=== PATIENT | female | born 1950 | race Caucasian/White ===

== ENCOUNTER 2024-03-19 08:38 | Day surgery (SDC) | payer MEDICARE, SELFPAY ==
[2024-03-12 11:13] VITALS: BMI 35.1
[2024-03-19] VITALS (10 sets, daily range): BP systolic 135–187; BP diastolic 67–89; PULSE 59–71; RESP 12–20; TEMP 36.6–37.1; O2SAT 93–98; BMI 34.7
--- NOTE | 2024-03-19 06:00 | DI.RAD.S_ITS ---
PROCEDURE: XR KNEE LT 1TO2V INDICATIONS: TKA TECHNIQUE: 2 view(s) of the knee acquired. COMPARISON: [facility], CR, XR KNEE 4+ VIEWS LEFT, 03/06/2024, 13:04. FINDINGS: Bones: Patient is status post knee joint arthroplasty. Hardware components are in expected positions. Visualized bony structures are intact. Soft tissues: Overlying postoperative changes are noted. IMPRESSION: Expected post-operative appearance of a knee arthroplasty. Dictated by: Nick Hargrove M.D. on 03/19/2024 at 17:56 Approved by: Nick Hargrove M.D. on 03/19/2024 at 17:56
[2024-03-19] MEDS: CELECOXIB 200 MG CAPSULE 400 MG PO (09:34)
[2024-03-19] MEDS: LACTATED RINGERS 1,000 ML 42 ML IV (09:34)
[2024-03-19] MEDS: ACETAMINOPHEN 325 MG TABLET 975 MG PO (09:36)
[2024-03-19] MEDS: VANCOMYCIN 1,500 MG/300 ML PIGGYBACK 200 MG IV (10:12)
--- NOTE | 2024-03-19 10:50 | PM.PREOP ---
Pre-operative Note Interval Note History & Physical reviewed/Exam performed by Physician: Yes Changes to H&P: No
--- NOTE | 2024-03-19 10:50 | PM.OP.1 ---
Operative Date/Time/Diagnoses Date of procedure: 03/19/24 Time of procedure: 11:30 Pre-op diagnosis: Left knee OA Post-op diagnosis: same Procedure & Clinicians Procedure: Left total knee arthroplasty Same procedure as scheduled: Yes Indications: The patient has had progressively worsening left knee pain with radiographic changes consistent with arthritis. Non-operative management has failed and the patient has requested total knee replacement. The risks, benefits and alternatives to surgery were discussed with the patient prior to proceeding. Risks discussed included, but were not limited to, failure to relieve pain, stiffness, infection, nerve damage, deep venous thrombosis, pulmonary embolism, stroke, coma, heart attack, permanent paralysis and , as well as the potential need for eventual revision of the prosthetic. Surgeon: Mary Jane Mora Family Worker: Jonathan Rose Anesthesia Type: General and Spinal Operative Notes Findings: Severe left knee OA, adequate stability, adequate bone Closure Type: primary Specimen(s): none sent Prosthetic devices, grafts, tissues, transplants, or devices: [facility] BCS 2 size 5 femur, size 4 tibia, +10 poly, 35 x 7-1/2 mm patella Estimated Blood Loss (mL): 250 Blood products transfused: none Tourniquet time (min): 123 Procedure in detail: The patient was seen in the pre-operative area, where the patient identified the left knee as the operative site and this was marked with my initials. The patient received pre-operative antibiotics, and was taken to the operating room and placed on the operative table in the supine position. After satisfactory anesthesia, a multimedia engineer out was performed. The left leg was encircled with a tourniquet about the proximal thigh, and the leg was prepared from the toes to the tourniquet with ChloroPrep in the usual fashion and draped through sterile drapes. The leg was elevated and exsanguinated with Eschmark bandage and the tourniquet inflated to [250] mmHg pressure. A PA was used during the procedure was essential for intraoperative retraction and safe implantation of the components. The knee was approached through an approximately 18 cm incision centered over the patella and carried into the knee through a medial parapatellar arthrotomy. She had a very tight knee with leathery synovium. Portion of the medial and lateral meniscus was resected. Soft tissue was carefully mobilized around the patella the patella was measured with a caliper. Bone was resected from the patella and the patellar height was reconstituted with up an appropriate sized patellar component. She had a severely worn patella which was slightly aberrant. A cover was then placed on the patella. A small amount of additional medial and lateral meniscus was resected. Sajan pins were placed for robot assisted navigation. Two pins were placed in the femur and the tibial guide was pinned to the tibia. A plan was taken and meticulously navigated in order to optimize range of motion and stability with good balance throughout range of motion. Cori robotic bur was used for the distal femoral resection. It looked like an appropriate distal femoral cut and the cut was made without difficulty. The rotation was assessed and the appropriate size femoral guide was placed on the distal femur and finishing cuts were made. There was no evidence of notching. The anterior, posterior and chamfer cuts were then made. The posterior osteophytes and soft tissues were then removed. The posterior capsule was injected with part of a mixture of 60 ml 0.25% Marcaine mixed with 20 ml Exparel for post operative pain control. The remainder of this mixture was injected into the capsule and subcutaneous tissues during cement curing. The tibial guide was carefully navigated. It was then pinned to the tibia and the proximal tibial cut was made. The rotation was assessed. The patient was placed in extension residual medial and lateral meniscus as well as any residual bone was carefully resected. [No] additional tibia was resected. Hemostasis was achieved especially posteriorly. Additional local was injected into the posterior capsule. The extension gap was assessed. The femoral component trial was placed and the notch was finished. Trial tibial and femoral components were then placed and the knee placed through a range of motion. Range of motion was [0-130], with good stability throughout the range. The trials were then removed, and the tibia was finished. The bone was prepared with pulsatile lavage, and dried with a sponge. Cement was applied and the final prosthetics placed. Excess cement was removed during and after cement curing. A brief Betadine soak was performed. After confirming there was no extruded cement posteriorly, the final tibial insert was placed. The knee was copiously irrigated and the tourniquet deflated. Hemostasis was obtained with the Bovie cautery. . The capsule was closed with interrupted # 1 Vicryl suture. The subcutaneous layer was closed with barbed sutures, and the skin with a running 3-0 V-Lock suture and Surgical glue. A guanakito dressing was applied and the patient was taken to recovery having tolerated the procedure well. Complications: none Post-operative Condition: stable Disposition: Acute Care Plan for aftercare: The patient will be maintained on a standard total knee replacement protocol with weight bearing as tolerated. The patient will receive aspirin and sequential compression devices for DVT prophylaxis. The patient will be discharged home when safe for the home environment.
--- NOTE | 2024-03-19 11:48 | SUR.PREOP ---
Block start time [1132] . Monitoring initiated and maintained throughout procedure. Oxygen and medications given per anesthesiologist instructions. Patient remained stable throughout procedure, no adverse reactions noted. Block end time [1140].
[2024-03-19] MEDS: CEFAZOLIN 2 GM/100 ML PREMIX 100 ML IV ×2 (12:36→18:14)
[2024-03-19] MEDS: TRANEXAMIC ACID 1,000 MG VIAL 1000 MG INJ ×2 (12:37→14:51)
--- NOTE | 2024-03-19 12:57 | SUR.OPER ---
Supine on padded OR bed. Pillow under head, arms secured on padded armboards <90 degree abduction. Safety belt across torso. Non-operative leg secured with tape over blanket over lower leg. Operative leg secured in DeMayo/Channing/Nathe positioner. Foam padded brace at thigh of operative leg.
[2024-03-19] MEDS: BUPIVACAINE 0.25% (PF) 60 ML, EPINEPHrine 0.3 MG INJ (13:04)
[2024-03-19] MEDS: BUPIVACAINE LIPOSOME 266 MG/20 ML VIAL INJ (13:05)
[2024-03-19] MEDS: LACTATED RINGERS 1,000 ML 100 ML IV (16:28)
[2024-03-19] MEDS: OXYCODONE IR 5 MG TABLET PO (17:12)
[2024-03-19] MEDS: ACETAMINOPHEN 325 MG TABLET 650 MG PO (17:13)
[2024-03-19] MEDS: IBUPROFEN 400 MG TABLET PO (18:15)
[2024-03-19] MEDS: DOCUSATE 100 MG CAPSULE PO (20:24)
[2024-03-19] MEDS: ASPIRIN EC 81 MG TABLET PO (20:24)
[2024-03-20 00:24] VITALS: BP 115/66; PULSE 69; RESP 18; TEMP 36.6; O2SAT 96
[2024-03-20] MEDS: CEFAZOLIN 2 GM/100 ML PREMIX 100 ML IV (02:37)
[2024-03-20 05:53] LABS: Hematocrit 35.6 % (36-46); Hemoglobin 11.9 g/dL (12.0-16.0)
[2024-03-20] MEDS: ASPIRIN EC 81 MG TABLET PO ×2 (07:59→20:29)
[2024-03-20] MEDS: DOCUSATE 100 MG CAPSULE PO ×2 (07:59→20:29)
[2024-03-20 08:00] VITALS: BP 117/60; PULSE 67; RESP 15; TEMP 36.8; O2SAT 99
[2024-03-20] MEDS: OXYCODONE IR 5 MG TABLET PO ×3 (08:00→15:05)
[2024-03-20] MEDS: ACETAMINOPHEN 325 MG TABLET 650 MG PO ×2 (08:00→15:02)
[2024-03-20] MEDS: SERTRALINE 50 MG TABLET 25 MG PO (08:05)
[2024-03-20] MEDS: hydroCHLOROthiazide 25 MG TABLET PO (08:05)
[2024-03-20] MEDS: CHOLECALCIFEROL (VITAMIN D3) 1,000 UNIT TABLET 2000 UNIT PO (08:05)
[2024-03-20 08:06] VITALS: BP 117/60; PULSE 67
[2024-03-20] MEDS: POTASSIUM CHLORIDE 10 MEQ TAB PO (08:06)
[2024-03-20] MEDS: LOSARTAN 50 MG TABLET 100 MG PO (08:06)
--- NOTE | 2024-03-20 09:35 | OT.IP.EVAL ---
Current Diagnoses Unilateral primary osteoarthritis, left knee (03/19/24) Surgery Performed Operation Date: 03/19/24 10:45 Actual Procedures p Total Knee Arthroplasty - Robot(Left) - Mary Jane Mora MD Past Medical History (Last Updated 03/12/24 @ 13:40 by Delmi Arizmendi, RN) Depression Difficult intravenous access GIB (gastrointestinal bleeding) H pylori ulcer H/O pilonidal cyst History of developmental delay HTN (hypertension) Surgical History (Last Updated 03/12/24 @ 13:40 by Delmi Arizmendi, RN) History of dilation and curettage History of tonsillectomy Status post total hip replacement, left Status post total hip replacement, right Occupational Therapy Inpatient Evaluation/Re-Eval M1 PT/OT-IP Prior Functional Status Start: 03/20/24 08:40 Freq: NEEDED Status: Active Protocol: Document 03/20/24 09:41 [facility] (Rec: 03/20/24 09:55 [facility] [id number]) Medical Review Prior Functional Status Communication I Mobility and Gait Pt states use of one arm crutch to get around. Activities of Daily Living and IADL's Pt had pain but able to do ADL needs. Prior Functional Level (Other details) Pt to stay at her sister's house. Information below based on her sister's house. Social History Household Members none Living Arrangements House Number of Floors (Floors) One Floor Number of Stairs To Enter/Railing? 1 platform step and then able to get into the house. Home Environment Standard Height Toilet,High Toilet,Walk in Shower,Bidet Home Equipment Front Wheel Walker,Crutches, Hand Held Shower,Computer Programmer,Sock Aid M2 OT-IP Current Condition Start: 03/20/24 08:40 Freq: Status: Active Protocol: Document 03/20/24 09:41 [facility] (Rec: 03/20/24 09:55 [facility] [id number]) Occupational Therapy Current Condition Current Condition Evaluation Date 03/20/24 Treatment Diagnosis S/P LKA Diagnosis Onset Date 03/19/24 M3 OT- IP Subjective and Pain Start: 03/20/24 08:40 Freq: Status: Active Protocol: Document 03/20/24 09:41 [facility] (Rec: 03/20/24 09:55 [facility] [id number]) OT- Subjective Occupational Therapy Visit Type Type Initial Evaluation Visit Start Time 08:50 Visit Stop Time 09:35 Occupational Therapy Visit Comments Patient Comments Pt agreed to get up. Patient/Caregiver Goals To get better. OT Pain Assessment Pain When Pain Assessed During Mobility Pain Present Pain Present Pain Reported Location left knee Intensity 8 Scale Used Numeric (0 - 10) M4 OT- IP ADL's Start: 03/20/24 08:40 Freq: Status: Active Protocol: Document 03/20/24 09:41 [facility] (Rec: 03/20/24 09:55 [facility] [id number]) OT FQK-Mrko-Aiuhhtd General Evaluation Self-Feeding Ability Independent OT ADL-Grooming Comments OT Grooming Comments Not performed. OT ADL-Oral Care Comments Oral Care Comments NOt performed, pt wanting to do after eating her oranges. OT ADL-Dressing General Eval Lower Body Dressing Ability Maximum Assistance Comments OT Dressing Comments Pt has LB dressing equipment that she can use at home, in addition her sister able to assist her. Educated to dress the LLE first and take out last for dressing needs. OT ADL-Toileting Comments OT Toileting Comments Educated best to get a BSC as pt having difficulty to stand, use pads/briefs, and wipes. Educated pt to be mindful of not twisting her knee during ADL needs. OT ADL-Bathing Comments OT Bathing Comments At this time best to get a shower chair for home use. M5 OT- IP IADL's Start: 03/20/24 08:40 Freq: Status: Active Protocol: Document 03/20/24 09:41 [facility] (Rec: 03/20/24 09:55 [facility] [id number]) OT-Instrumental Activities of Daily Living Home Safety Awareness Awareness of Need for Assistance at Home Good Awareness Home Safety Comments Pt aware that she will need assist at this time and planes to stay at her sister's house . Money Management Money Management Caregiver Provides Assistance Meal Preparation Meal Preparation Comments Pt will need assist. Science Center Display Builder Science Center Display Builder Comments Pt will need assist. Driving Driving Comments Pt does no drive. M6 OT- IP Functional Cognition Start: 03/20/24 08:40 Freq: Status: Active Protocol: Document 03/20/24 09:41 [facility] (Rec: 03/20/24 09:55 [facility] [id number]) Cognitive Factors Limiting Selfcare Function Cognitive Ability Level of Alertness Alert Patient Orientation Name,Place,Situation Ability to Follow Commands Able to Follow One Step Commands with Increased Time, Able to Follow One Step Commands with Repetition Cognitive Comments Cognitive Assessment Comments Pt needing safety cues to follow and repeated directions at times. Per medical chart states pt has dev delay. OT- Vision and Hearing OT- Hearing Assessment OT- Hearing Assessment WFL OT- Vision Assessment Visual Acuity Glasses All The Time Visual Attentiveness WFL Occular Pursuits WFL M7 OT- IP Mobility and Balance Start: 03/20/24 08:40 Freq: Status: Active Protocol: Document 03/20/24 09:41 [facility] (Rec: 03/20/24 09:55 [facility] [id number]) OT- Bed Mobility Assessment Supine to Sit Supine to Sit Assist Standby Assistance Scooting Scooting to Edge of Bed Moderate Assistance OT-Transfer Assessment Sit to and From Stand Sit to and from Stand Moderate Assistance Transfers Transfer Ability Minimal Assistance Technique Transfer Destination Bed,Chair Transfer Technique Stand Step Pivot Devices Transfer Assistive Devices Gait Belt,Front Wheeled Walker Comments Mobility Comments Pt needing heavy use of her hand to assist to move her LLE . MODA to scoot her left side to the edge of the bed. MODA x1 to stand and vc to push from the bed. Pt is use to pushing on the FWW to stand. Once on her feet MAX with FWW . BP supine 134/64, sit 136/ 65, and stand 134/64. OT- Balance Assessment Sitting Balance and Reactions Static Sitting Balance Ability Good Dynamic Sitting Balance Ability Fair Standing Balance and Reactions Static Standing Balance Ability Fair Dynamic Standing Balance Ability Fair M8 OT- IP Objective Assessments Start: 03/20/24 08:40 Freq: Status: Active Protocol: Document 03/20/24 09:41 [facility] (Rec: 03/20/24 09:55 [facility] [id number]) OT Gross Range of Motion Upper Extremity Range of Motion Assessment Within Functional Limits OT Strength Upper Extremity Strength Assessment Within Functional Limits OT- Coordination Assessment Comments Coordination Comments Arthritic changes in her hands . M9 OT- IP Assessment and Plan Start: 03/20/24 08:40 Freq: Status: Active Protocol: Document 03/20/24 09:41 [facility] (Rec: 03/20/24 09:55 [facility] [id number]) OT Summary Assessment and Plan Potential Rehabilitation Potential Good Analytic Complexity at Evaluation Low Summary OT Impairments Pain,Range of Motion,Strength, Balance,Functional Mobility, Dressing,Toileting,Bathing, Toilet Transfers,Shower Transfers Progress Towards Goals Progressing Toward Goals Assessment Summary Pt low complexity and main barriers are pain and difficulty with transitions at this time. Pt looking to go home to her sister's house. Suggested pt to get BSC, shower chair, and long handled brush. Pt requesting to have home health at this time. Goals Grooming Goal Independent Dressing Goal Minimal Assistance,Computer Programmer, Sock Aid Toileting Goal Standby Assistance Bathing Goal Minimal Assistance Toilet Transfer Goal Independent,Bedside Commode Shower Transfer Goal Standby Assistance,Shower Chair Days to Meet Goals 5 Frequency of Treatment Other frequency 5x/week Treatment Plan OT Treatment Plan ADL Training,Functional Mobility,Patient/Family Education,Discharge Planning Discharge Recommendations OT Discharge Recommendations Home with 21/11 Assist Available,Home Health Home Equipment Needs BSC, Shower chair, long handled brush Transportation Needs at Discharge Private Vehicle
--- NOTE | 2024-03-20 10:15 | PT.IIE ---
Current Diagnoses Unilateral primary osteoarthritis, left knee (03/19/24) Surgery Performed Operation Date: 03/19/24 10:45 Actual Procedures p Total Knee Arthroplasty - Robot(Left) - Mary Jane Mora MD Surgical History (Last Updated 03/12/24 @ 13:40 by Delmi Arizmendi, RN) History of dilation and curettage History of tonsillectomy Status post total hip replacement, left Status post total hip replacement, right Medical History (Last Updated 03/12/24 @ 13:40 by Delmi Arizmendi, RN) Depression Difficult intravenous access GIB (gastrointestinal bleeding) H pylori ulcer H/O pilonidal cyst History of developmental delay HTN (hypertension) Physical Therapy Inpatient Evaluation/Re-Eval M1 PT/OT-IP Prior Functional Status Start: 03/20/24 11:56 Freq: NEEDED Status: Active Protocol: Document 03/20/24 10:15 [facility] (Rec: 03/20/24 12:14 [facility] [id number]) Medical Review Prior Functional Status Medical History Reviewed Yes Communication able to make needs known Mobility and Gait pt stated that she was modified independent with all mobilities and ambulation using 1 forearm crutch Activities of Daily Living and IADL's per OT note: Pt had pain but able to do ADL needs. Social History Household Members none Living Arrangements House Number of Floors (Floors) One Floor Number of Stairs To Enter/Railing? pt plans to go to her sister's house upon d/c: info provided is regarding pt's sister's home set up 2 steps without rails to enter the house Home Environment Standard Height Toilet,Walk in Shower,Bidet Home Equipment Front Wheel Walker,Crutches, Hand Held Shower,Knot Saw Operator,Sock Aid Additional Social History Comment pt has forearm crutches pt stated that she will be sleeping on a couch but can also sleep on a reclincer M2 PT-IP Current Condition Start: 03/20/24 11:56 Freq: NEEDED Status: Active Protocol: Document 03/20/24 10:15 [facility] (Rec: 03/20/24 12:14 [facility] [id number]) Physical Therapy Current Condition Current Condition Evaluation Date 03/20/24 Treatment Diagnosis s/p L TKA; difficulty in walking Onset Date 03/19/24 M3 PT-IP Subjective Start: 03/20/24 11:56 Freq: NEEDED Status: Active Protocol: Document 03/20/24 10:15 [facility] (Rec: 03/20/24 12:14 AB [id number]) Subjective Physical Therapy Visit Type Type Initial Evaluation Visit Start Time 10:15 Visit Stop Time 10:55 Number of AIRLINE COUNTER AGENT Visits 0 Physical Therapy Visit Comments Patient Comments agreeable to do PT Therapy Pain Assessment Pain When Pain Assessed At Rest Pain Present Pain Present Pain Reported Location left knee Intensity 7 Scale Used increases with mobility Pain Behaviors Guarding,Holding Area Pain Management Techniques Apply Cold,Distraction, Modification of Treatment, Timing of Activity with Medications M4 PT-IP Mobility and Gait Start: 03/20/24 11:56 Freq: NEEDED Status: Active Protocol: Document 03/20/24 10:15 [facility] (Rec: 03/20/24 12:14 [facility] [id number]) PT-Transfer Assessment Sit to and From Stand Sit to and from Stand Moderate Assistance,Maximum Assistance,1 Person Assistance ,Use of Upper Extremities Equipment Transfer Assistive Device Gait Belt,Front Wheeled Walker Orthotic/Prosthetic Devices or Brace: No Transfers Transfer Destination Bed,Chair Transfer Technique Stand Step Pivot Transfer Ability Level of Assist Moderate Assistance,1 Person Assistance,Use of Upper Extremities Comments Mobility Comments pt sitting on the chair. agreed to do PT. obtained PLOF and home setup. BP checked: 112/63 pt completed seated heel slides prior to getting up. completed sit to stand mod A and max cues. ambulated ~ 3 ft using FWW mod to max A and max cues. presents with unsteady antalgic gait with decrease LE elevation and step length. slight buckling during end stance. cued for quads activation. pt c/o nausea with ambulation and needing to sit down. pt sat on EOB. BP checked: 113/56. nurse aware and provided pt with nausea med. pt refused further activities but agreed to transfer back to chair. sit to stand from EOB mod A and step transfer to chair mod to max A and max cues. positioned pt on the chair. call light and table placed within reach. informed pt regarding current mobility level and assistance needed. pt is not sure if her sister will be able to assist her but will be staying at sister's house. Gait Assessment Gait Gait Assistance Required: Moderate Assistance,Maximum Assistance Distance (Feet) 3 Able to Maintain Weight Bearing Status Yes During Gait Assistive Devices Assistive Device Gait Belt,Front Wheeled Walker Orthotic/Prosthetic Devices or Brace: No Gait Deviations General Gait Pattern Antalgic,Decreased Stride Length,Decreased Feet Clearance,Step-to Gait Factors Limiting Gait Function Factors Limiting Gait Function Decreased Activity Tolerance, Decreased Strength,Difficulty Following Directions,Limited Range of Motion,Pain,Poor Balance,Poor Safety Awareness PT-Balance Assessment Sitting Balance and Reactions Static Sitting Balance Ability Good Dynamic Sitting Balance Ability Good Standing Balance and Reactions Static Standing Balance Ability Fair Dynamic Standing Balance Ability Poor Device Used FWW M5 PT-IP Objective Assessments Start: 03/20/24 11:56 Freq: NEEDED Status: Active Protocol: Document 03/20/24 10:15 [facility] (Rec: 03/20/24 12:14 [facility] [id number]) Orientation Orientation/Cognition Level of Alertness Alert Orientation Name,Place,Situation Language Function Ability Hard of Hearing Safety Awareness Decreased Safety Awareness Memory Description Short Term Impaired Gross Range of Motion Lower Extremity ROM Assessment Left Impaired Impairments L knee flexin: ~ 50 deg Strength Lower Extremity Strength Assessment Left Impaired Hip 3+/5 Knee 3+/5 Muscle Tone Muscle Tone WNL Yes M6 PT-IP Treatment Start: 03/20/24 11:56 Freq: NEEDED Status: Active Protocol: Document 03/20/24 10:15 [facility] (Rec: 03/20/24 12:14 AB [id number]) Physical Therapy Treatment Exercises Exercises Heel Slides Education Education Provided Precautions,Weight Bearing Status,Safety M7 PT-IP Assessment and Plan Start: 03/20/24 11:56 Freq: NEEDED Status: Active Protocol: Document 03/20/24 10:15 [facility] (Rec: 03/20/24 12:14 AB [id number]) PT Summary Assessment and Plan Potential Rehabilitation Potential Fair Status of Condition at Evaluation Evolving Summary Impairments Pain,ROM,Strength,Balance, Coordination,Sensation,Tone, Cognition,Bed Mobility, Transfers,Gait,Activity Tolerance Assessment Summary pt is a 73 y/o F s/p L TKA POD 1. pt is WBAT on LLE. pt lives alone but plans to d/c to her sister's house but is not sure if her sister will be able to provide assistance to her. pt requiring mod to max A with mobility using a FWW. pt with c/o increase L knee pain and unable to tolerate much activity. d/c plan depending on progress but pt may require SNF rehab. will continue to assess. Goals Bed Mobility Goal Independent Transfer Goal Independent,Front Wheeled Walker Gait Goal Independent,Front Wheel Walker Gait Distance 100 Other Goals up/down 2 steps using forearm crutch/ELECTRIC SCREW DRIVER OPERATOR CGA Days to Meet Goals 10 Frequency of Treatment Frequency Of Treatment Twice a Day Treatment Plan Physical Therapy Treatment Plan Bed Mobility Training,Transfer Training,Gait Training, Therapeutic Exercise,Balance Retraining,Post Op Education, Discharge Planning,Hot or Cold Pack,Neuromuscular Re-ed, Coordination Retraining,Manual Therapy Weight Bearing Status Weight Bearing Status Weight Bear as Tolerated Allowed Weight Bearing Amount (enter % LLE WBAT or #) (%) Recommendations To Nursing Amount of Assist Needed 1 Person Assist Discharge Recommendations PT Discharge Recommendations Home with 21/11 Assist Available,Home Health,SNF Rehab,Home vs SNF Transportation Needs at Discharge Private Vehicle,Wheelchair/ Cabulance
[2024-03-20] MEDS: ONDANSETRON 4 MG/2 ML INJ IV (10:38)
[2024-03-20] MEDS: IBUPROFEN 400 MG TABLET PO ×2 (11:51→16:59)
--- NOTE | 2024-03-20 12:24 | PM.DS.1 ---
History of Present Illness History of Present Illness Chief complaint: Left TKA *OPB* Narrative: Ceci is a pleasant 73 year old female who is POD#1 s/p L TKA by Dr. Mora. This morning she reports she is doing well, still having a lot of left knee pain and difficulty w/ WB d/t pain. Denies any radiating pain, denies any weakness or numbness in the LLE. She does live alone but plans to stay w/ her sister for a few days post-op before returning to home. Her sister only has 2 steps into the house. She does not have post-op PT scheduled, will need HH referral. She has post-op pain medication at home already. Has walker at home for post-op use and gel/ice packs for her knee. Has a history of gastric ulcer so will try to avoid NSAIDs post-op. Has urinated 1x without issue, no BM. Denies fever, chills, chest pain, SOB, nausea, vomiting. Discharge Providers Provider Discharge Date: 03/20/24 Primary care physician: Christina Bruno PA-C Consults: 03/19/24 06:00 Consult to Anesthesiology Routine Comment: Consulting Provider: Anesthesiologist Reason for consultation: Regional block for post operative pain control Has provider been notified: No 03/19/24 16:18 Consult to Discharge Planning Routine Comment: Consult to Occupational Therapy Evaluate & Treat Comment: Physician Instructions: Evaluate and treat Consult to Physical Therapy Evaluate & Treat Comment: Physician Instructions: postop TKA protocol Discharge provider: Shell Saini PA-C Summary Hospital Course Discharge Diagnosis: stable s/p L TKA Hospital Course: Relatively uncomplicated hospital course, slow to make progress w/ WB initially d/t pain, now improved. Exam Vital Signs (past 8 hours): - 03/20/24 08:00 03/20/24 08:06 03/20/24 09:30 Temperature 98.2 F Pulse Rate 67 67 Respiratory Rate 15 Blood Pressure 117/60 117/60 Pulse Oximetry 99 Oxygen Delivery Method Room Air Oxygen Flow Rate 0 Fraction of Inspired Oxygen 24 SaO2/FiO2 Ratio 408 Oxygen Delivery Method Room Air Oxygen Flow Rate 0 Narrative Exam Narrative: Patient sitting comfortably in bedside chair during our interview today. No acute distress. AOx3. Grossly normal alignment of the LLE w/ moderate swelling throughout the LLE. 5/5 strength with DF, PF, EHL bilaterally. Gross sensation intact throughout bilateral lower extremities. Calves soft and non-tender bilaterally. SCDs are on and functioning. Brisk capillary refill, pulses intact. Post-surgical MATT dressing clean, dry and intact over the left knee with mild proximal bloody drainage. Objective Labs 03/20/24 05:27 Labs: Laboratory Results - last 24 hr 03/20/24 05:27 Hgb 11.9 L Hct 35.6 L PFSH Medical History (Updated 03/12/24 @ 13:40 by Delmi Arizmendi, MIGUEL) H/O pilonidal cyst Difficult intravenous access History of developmental delay HTN (hypertension) Depression H pylori ulcer GIB (gastrointestinal bleeding) Surgical History (Updated 03/12/24 @ 13:40 by Delmi Arizmendi, RN) History of dilation and curettage History of tonsillectomy Status post total hip replacement, right Status post total hip replacement, left Social History household members: none Smoking Status: Former smoker alcohol intake: current Discharge Assessment & Plan Assessment and Plan Assessment: stable s/p L TKA Plan of Treatment: 1) Plan to discharge to home today with sister pending PT evaluation. SNF not approved by patient insurance according to . 2) Continue multimodal pain management with ice to the knee for additional pain control. Patient has post-op pain medication at home already. Will try to avoid NSAIDs if possible d/t hx of gastric ulcer. 3) ASA b.i.d. for DVT prophylaxis. Will send Rx today. 4) Start outpatient physical therapy to work on range of motion and mobility. Appreciate assistance w/ HH w/ PT referral. 5) Keep dressing intact, clean, dry until 2 week postop appointment. No soaking the incision site in pools or tubs. No topical ointments or creams to the incision site. 6) Follow up at [facility] in 2 weeks for a postop appointment and wound check. All of the patients questions were answered and she is in agreement w/ the treatment plan. Discussed red flag sx and return precautions. Call our office if any questions or concerns arise. Discharge Plan Discharge Plan Patient Disposition: Home Discharge orders & Medications Discharge Orders: Discharge (Order); Ordered 03/20/24 Ordered By: Shell Saini Prescriptions: New omeprazole 20 mg capsule,delayed release(DR/EC) 20 mg PO DAILY Qty: 30 0RF oxycodone 5 mg tablet 5 mg PO Q4H PRN (Reason: pain) Qty: 30 0RF aspirin 81 mg Tablet,Delayed Release (Dr/Ec) 81 mg PO BID Qty: 90 0RF docusate sodium 100 mg Capsule 100 mg PO BID PRN (Reason: constipation) Qty: 30 0RF ondansetron 4 mg Tablet,Disintegrating 4 mg PO Q8HR PRN (Reason: Nausea And Vomiting) Qty: 7 0RF Continued potassium chloride 10 mEq Tablet Extended Release 10 meq PO DAILY sertraline [Zoloft] 25 mg Tablet 25 mg PO DAILY cholecalciferol (vitamin D3) [Vitamin D3] 50 mcg (2,000 unit) Capsule 50 mcg PO DAILY acetaminophen [Tylenol Extra Strength] 500 mg Tablet 1,000 mg PO Q8H PRN (Reason: knee pain) losartan-hydrochlorothiazide 100-25 mg Tablet 1 tab PO QAM Follow up/Referrals: Mary Jane Mora MD [Physician] - 04/03/24 3:30 pm (Appt:04/03 @ 3:[address] Mora @ [facility] [place] [employer] please arrive 15 min prior to scheduled appointment time) Christina Bruno PA-C [Primary Care Provider] - Diet/Activity/Treatments Diet: Diet as Tolerated Activity: Weightbearing as tolerated. Walk frequently! Cold/Heat Therapy: Ice to knee as needed for pain. Skin/Wound/Dressing Care Report to your healthcare provider any signs of infection, such as:: chills, fever, night sweats, unusual drainage and unusual redness Dressing: May remove AMANDA wrap and shower on 03/22/2024. Leave dressing in place until follow up in office. No bathing or otherwise soaking incision. Call the office if the dressing becomes saturated inside. Visit Report/Discharge Packet Instructions: DI for Knee Replacement, DI for Prescription Opioid Use Stand Alone Forms: Patient Portal/API Discharge Data Primary Care Provider: Crhistina Bruno Attending Provider: Mary Jane Mora Quality VTE Deep Vein Thrombosis/Pulmonary Embolism Present on Admission: No
--- NOTE | 2024-03-20 13:19 | CM.DANOTE ---
Initial DCP Assessment Visit Note Reviewed EMR and team rounds for status updates. Met with pt at bedside to introduce self and role, pt was found to be alert/oriented, in good spirits, pain well controlled, and was able to share with me her preference to d/c home with her sister for her immediate postoperative recovery period. Pt lives modified independently in her home in [place]. She has cognitive developmental delays, and her sister assists her with care coordination, transportation, and assistance when needed. Her sister is planning to also transport her home tomorrow, after cg training at 9:00am. Pt was expressing increased pain, and was only able to work with PT in taking 3-steps. Plan is for PT to work with her again later this afternoon, and again in the am prior to d/c home. Send referral to [facility] for PT/OT. Payor: [facility] Medicare Attending: Dr. Mary Jane Mora Pt is a 73 year-old F post-op day 1 from a L-total knee arthroplasty surgery. She has a hx of worsening and debilitating knee pain that significantly interferes with her ADL's, despite having tied conservative efforts such as injections, NSAIDS, and exercise modification. She does have OP PT setup, and the DME necessary for home recovery. No further needs are indicated for CM assistance at this time. Discharge Planning/Care Management Pre-Anesthesia Assessment Start: 03/12/24 11:13 Freq: Status: Active Protocol: Document 03/12/24 11:13 LB (Rec: 03/12/24 12:43 LB [id number]) Pre-Anesthesia Assessment PAC Comment 03/12/24 Phone assessment. Spoke with sister, Elsa. 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 Pt has issues with reasoning and listening. Patient Information Reviewed Via Phone Assessment Assessment Completed With Sibling Comment Elsa - sister - pt has special needs Diagnostic Results BMP/CMP,CBC,EKG,Urinalysis Comment 02/16/24 Outside results. Primary Care Provider Christina Bruno Seen Specialist in Last 12 Months Yes Specialist Seen Orthopedist Primary Language Sierra Leonean Preferred Language Sierra Leonean Hand Lacer Required No Height 165.1 cm Weight 95.708 kg Body Mass Index (BMI) 35.1 Hearing Ability Normal Visual Assist Glasses Dentition Type Teeth, Natural Present,Teeth, Missing Barriers to Learning Cognitive impairment, Developmental delay Comment Reading glasses. Hx Anesthesia Reactions No Hx Family Anesthesia Reaction No Hx Malignant Hyperthermia No Hx Blood Transfusions Yes: after both hip replacements and GIB. Hx Blood Transfusion Reaction No Anesthesia Review Requested No Wash Operator Yes Additional comment Special needs. alcohol intake current alcohol intake frequency 0-2 drinks per day Smoking Status Former smoker Tobacco type cigarettes how long ago did patient quit smoking Quit 1999. Substance Use Type does not use Pain Present Pain Reported Comment Left knee. Musculoskeletal Symptoms Difficulty Walking,Joint Pain History of Falling (Recent or History of No ) Patient is completely paralyzed or No completely immobile Prosthesis or Orthotic Device Crutches Comment Will bring walker. Is patient on oxygen? No Does patient have LUBIN/SOB No Hx Sleep Apnea No Currently Taking a Beta Renetta No Can You Climb a Flight of Stairs Without No SOB Hx Chest Pain No Hx SOB No Hx Syncope or Dizziness No Anti-Coagulant Therapy No Has a Automatic Engraver No Cardiac Testing No Hx Pacemaker/ICD No Cardiac Clearance Received Not Applicable Dysphagia No Chronic UTI No Urinary Catheter Present No Hx Urinary Self Catheterization No Diabetes No Patient No Lactating No Hx Drug Resistant Organism No Presence of External or Internal Medical Yes: Bilat hips Devices Have you had any close contact with No someone diagnosed with COVID-19? Are you experiencing any of these No symptoms symptoms? Comment Denies covid last 2 months. Lives With none Current Living Arrangements Mobile home Number of Floors (Floors) One Floor Number of Stairs To Enter/Railing? 5 stairs with railing to enter . Support System Sibling(s) Does the Patient Have Assistance After Yes Surgery Patient Discharge Plan Description Return Home Comment Advised probable overnight LOS . Hoping for SNF. Do You Have Any Spiritual Beliefs That No May Affect Your HC Choices? Do You Have Any Cultural Practices That No May Affect Your HC Choices? Who Can We Speak to About Patient's Care Friends, family Identifying Code for Release of Patient Declines to issue. Information Emergency Contact Name Elsa pratt Emergency Contact Advance Directives? Yes Advance Directives on File No Requested Patient Bring Advanced Yes Directives DOS Power of Motor Hotel Manager Yes Power of Motor Hotel Manager Name Elsa pratt Power of Motor Hotel Manager PAC Instructions Assistance for 24 hours post- op,Do not shave/clip surgical site,Durable medical equipment ,Medications to take/avoid, Nasal antibiotic,No ETOH/ petroleum product on skin DOS, NPO,Pre-surgical wash,Sensory aids,Sturdy shoes/comfortable clothes,Do not bring valuables and remove jewelry
--- NOTE | 2024-03-20 14:30 | PT.IPTN ---
Current Diagnoses Unilateral primary osteoarthritis, left knee (03/19/24) Surgery Performed Operation Date: 03/19/24 10:45 Actual Procedures p Total Knee Arthroplasty - Robot(Left) - Mary Jane Mora MD Physical Therapy Treatment Note M2 PT-IP Current Condition Start: 03/20/24 11:56 Freq: NEEDED Status: Active Protocol: Document 03/20/24 10:15 AB (Rec: 03/20/24 12:14 AB [id number]) Physical Therapy Current Condition Current Condition Evaluation Date 03/20/24 Treatment Diagnosis s/p L TKA; difficulty in walking Onset Date 03/19/24 M3 PT-IP Subjective Start: 03/20/24 11:56 Freq: NEEDED Status: Active Protocol: Document 03/20/24 14:30 AB (Rec: 03/20/24 15:31 AB [id number]) Subjective Physical Therapy Visit Type Type Treatment Note Visit Start Time 14:30 Visit Stop Time 15:05 Notes district loss prevention manager informed PT that pt cannot go to SNF due to insurance coverage. Also informed PT that pt's sister can only come in for caregiver training tomorrow 9-10am. Informed HELP DESK ASSOCIATE regarding caregiver training tomorrow at 9 am. per nurse: sister informed that she is ~ 40-50# lighther than pt and will not be able to assist pt much. Number of HELP DESK ASSOCIATE Visits 0 Physical Therapy Visit Comments Patient Comments agreeable to do PT Therapy Pain Assessment Pain When Pain Assessed At Rest Pain Present Pain Present Pain Reported Location left knee Intensity 4 Scale Used increases to 9/10 with movement Pain Behaviors Facial Grimacing,Guarding Pain Management Techniques Apply Cold,Distraction, Modification of Treatment,Re- positioning,Timing of Activity with Medications M4 PT-IP Mobility and Gait Start: 03/20/24 11:56 Freq: NEEDED Status: Active Protocol: Document 03/20/24 14:30 AB (Rec: 03/20/24 15:31 AB [id number]) PT-Bed Mobility Assessment Supine to Sit Supine to Sit Standby Assistance Sit to Supine Sit to Supine Standby Assistance PT-Transfer Assessment Sit to and From Stand Sit to and from Stand Minimal Assistance,1 Person Assistance,Use of Upper Extremities Equipment Transfer Assistive Device Gait Belt,Front Wheeled Walker Orthotic/Prosthetic Devices or Brace: No Transfers Transfer Destination Toilet Transfer Technique ambulated Transfer Ability Level of Assist Minimal Assistance,1 Person Assistance,Use of Upper Extremities Comments Mobility Comments pt sitting on the chair and agreed to do PT. pt requested to use the toilet. completed sit to stand min A and cues. pt required 2 attempts to stand. pt initially using just UE to stand and not pushing with BLE. cued to correct and able to stand on second attempt. ambulated from chair to the toilet using FWW min A and cues. continues to have unsteady antalgic gait with decrease LE elevation and step length. cued for quads activation. pt used grab bar to assist with sit<>stand. able to stand using grab bar to assist min A and cues. pt ambulated towards the sink using fWW min A and cues and pt was able to maintain stainding CGA while completing handwashing. pt ambulated toward EOB using FWW min A. completed sit <>supine SBA and cues for techniques. pt required increase time to completed. pt used UE to assist LLE up to the bed. pt completed step transfer to chair using FWW min A and cues . informed pt regarding LLE stability for stair climbing. pt completed static LLE single stance using forearm crutch + HEDGE FUND TRADER max A and max cues. pt completed x 2 reps and tolerated 3-4 sec standing . pt sat back on chair. positioned on chair. c/o nausea with (+) emesis. nurse aware. pt stated that she usually throws up when she has increase pain. pt felt better after resting. ice pack provided. call light and table placed within reach. Gait Assessment Gait Gait Assistance Required: Minimum Assistance Distance (Feet) 20 Able to Maintain Weight Bearing Status Yes During Gait Assistive Devices Assistive Device Gait Belt,Front Wheeled Walker Orthotic/Prosthetic Devices or Brace: No Gait Deviations General Gait Pattern Antalgic,Decreased Stride Length,Decreased Feet Clearance,Step-to Gait Factors Limiting Gait Function Factors Limiting Gait Function Decreased Activity Tolerance, Decreased Strength,Difficulty Following Directions,Limited Range of Motion,Pain,Poor Balance,Poor Safety Awareness M5 PT-IP Objective Assessments Start: 03/20/24 11:56 Freq: NEEDED Status: Active Protocol: Document 03/20/24 10:15 AB (Rec: 03/20/24 12:14 AB [id number]) Orientation Orientation/Cognition Level of Alertness Alert Orientation Name,Place,Situation Language Function Ability Hard of Hearing Safety Awareness Decreased Safety Awareness Memory Description Short Term Impaired Gross Range of Motion Lower Extremity ROM Assessment Left Impaired Impairments L knee flexin: ~ 50 deg Strength Lower Extremity Strength Assessment Left Impaired Hip 3+/5 Knee 3+/5 Muscle Tone Muscle Tone WNL Yes M6 PT-IP Treatment Start: 03/20/24 11:56 Freq: NEEDED Status: Active Protocol: Document 03/20/24 14:30 AB (Rec: 03/20/24 15:31 AB [id number]) Physical Therapy Treatment Education Education Provided Safety M7 PT-IP Assessment and Plan Start: 03/20/24 11:56 Freq: NEEDED Status: Active Protocol: Document 03/20/24 14:30 AB (Rec: 03/20/24 15:31 AB [id number]) PT Summary Assessment and Plan Potential Rehabilitation Potential Fair Summary Impairments Pain,ROM,Strength,Balance, Coordination,Sensation,Tone, Cognition,Bed Mobility, Transfers,Gait,Activity Tolerance Progress Towards Goals Slow Progress due to Pain,Slow Progress due to Activity Tolerance Assessment Summary pt able to ambulate this afternoon using FWW ~ 20 ft min A and cues. pt continues to present with unsteady antalgic gait. pt with c/o increase knee pain affecting activity tolerance and mobility. caregiver training scheduled tomorrow at 9 am. will continue to assess. Goals Bed Mobility Goal Independent Transfer Goal Independent,Front Wheeled Walker Gait Goal Independent,Front Wheel Walker Gait Distance 100 Other Goals up/down 2 steps using forearm crutch/HEDGE FUND TRADER CGA Days to Meet Goals 10 Frequency of Treatment Frequency Of Treatment Twice a Day Treatment Plan Physical Therapy Treatment Plan Bed Mobility Training,Transfer Training,Gait Training, Therapeutic Exercise,Balance Retraining,Post Op Education, Discharge Planning,Hot or Cold Pack,Neuromuscular Re-ed, Coordination Retraining,Manual Therapy Weight Bearing Status Weight Bearing Status Weight Bear as Tolerated Allowed Weight Bearing Amount (enter % LLE WBAT or #) (%) Recommendations To Nursing Amount of Assist Needed 1 Person Assist Discharge Recommendations PT Discharge Recommendations Home with 21/11 Assist Available,Home Health,SNF Rehab,Home vs SNF Transportation Needs at Discharge Private Vehicle,Wheelchair/ Cabulance
[2024-03-20 20:00] VITALS: BP 97/67; PULSE 66; RESP 17; TEMP 37.6; O2SAT 95
[2024-03-21] MEDS: OXYCODONE IR 5 MG TABLET PO ×2 (03:05→08:06)
--- NOTE | 2024-03-21 07:34 | PM.DS.1 ---
History of Present Illness History of Present Illness Date Patient Seen: 03/21/24 Time Patient Seen: 07:34 Chief complaint: Left TKA *OPB* Narrative: The patient has had progressively worsening left knee pain with radiographic changes consistent with arthritis. Non-operative management has failed and the patient has requested total knee replacement. The risks, benefits and alternatives to surgery were discussed with the patient prior to proceeding. Risks discussed included, but were not limited to, failure to relieve pain, stiffness, infection, nerve damage, deep venous thrombosis, pulmonary embolism, stroke, coma, heart attack, permanent paralysis and , as well as the potential need for eventual revision of the prosthetic. Discharge Providers Provider Discharge Date: 03/21/24 Primary care physician: Christina Bruno PA-C Consults: 03/19/24 06:00 Consult to Anesthesiology Routine Comment: Consulting Provider: Anesthesiologist Reason for consultation: Regional block for post operative pain control Has provider been notified: No 03/19/24 16:18 Consult to Discharge Planning Routine Comment: Consult to Occupational Therapy Evaluate & Treat Comment: Physician Instructions: Evaluate and treat Consult to Physical Therapy Evaluate & Treat Comment: Physician Instructions: postop TKA protocol Discharge provider: Jonathan Rose PA-C Summary Hospital Course Discharge Diagnosis: Left knee OA Hospital Course: Left total knee arthroplasty Same procedure as scheduled: Yes Surgeon: Mary Jane Mora Coagulating Bath Mixer: Jonathan Rose Anesthesia Type: General and Spinal Operative Notes Findings: Severe left knee OA, adequate stability, adequate bone Closure Type: primary Specimen(s): none sent Prosthetic devices, grafts, tissues, transplants, or devices: Mora and nephew journey BCS 2 size 5 femur, size 4 tibia, +10 poly, 35 x 7-1/2 mm patella Estimated Blood Loss (mL): 250 Blood products transfused: none Tourniquet time (min): 123 Status at Discharge Cognitive/behavioral status at discharge: oriented Functional status at discharge: uses cane/walker Overall status at discharge: patient is back to baseline Time Spent with Patient Time spent: Less than 30 minutes Exam Vital Signs (past 8 hours): Fraction of Inspired Oxygen 24 SaO2/FiO2 Ratio 408 Oxygen Delivery Method Room Air Oxygen Flow Rate 0 Narrative Exam Narrative: Patient sitting comfortably in bed. No acute distress. AOx3. Grossly normal alignment of the LLE w/ moderate swelling throughout the LLE. 5/5 strength with DF, PF, EHL bilaterally. Gross sensation intact throughout bilateral lower extremities. Calves soft and non-tender bilaterally. SCDs are on and functioning. Brisk capillary refill, pulses intact. Post-surgical MATT dressing clean, dry and intact over the left knee with mild proximal bloody drainage. Objective Labs 03/20/24 05:27 [facility] Medical History (Updated 03/12/24 @ 13:40 by Delmi Arizmendi, RN) H/O pilonidal cyst Difficult intravenous access History of developmental delay HTN (hypertension) Depression H pylori ulcer GIB (gastrointestinal bleeding) Surgical History (Updated 03/12/24 @ 13:40 by Delmi Arizmendi, RN) History of dilation and curettage History of tonsillectomy Status post total hip replacement, right Status post total hip replacement, left Social History household members: none Smoking Status: Former smoker alcohol intake: current Discharge Assessment & Plan Assessment and Plan Assessment: stable s/p L TKA Plan of Treatment: 1) Plan to discharge to home today with sister. SNF not approved by patient insurance according to . 2) Continue multimodal pain management with ice to the knee for additional pain control. Patient has post-op pain medication at home already. Will try to avoid NSAIDs if possible d/t hx of gastric ulcer. 3) ASA 81mg b.i.d. for DVT prophylaxis for 6 weeks. Rx sent 4) Start outpatient physical therapy to work on range of motion and mobility. Appreciate assistance w/ w/ PT referral. 5) Keep dressing intact, clean, dry until 2 week postop appointment. No soaking the incision site in pools or tubs. No topical ointments or creams to the incision site. 6) Follow up at [facility] in 2 weeks for a postop appointment and wound check. All of the patients questions were answered and she is in agreement w/ the treatment plan. Discussed red flag sx and return precautions. Call our office if any questions or concerns arise. Discharge Plan Discharge Plan Patient Disposition: Home Discharge orders & Medications Discharge Orders: Discharge (Order); Ordered 03/20/24 Ordered By: Shell Saini Prescriptions: New omeprazole 20 mg capsule,delayed release(DR/EC) 20 mg PO DAILY Qty: 30 0RF oxycodone 5 mg tablet 5 mg PO Q4H PRN (Reason: pain) Qty: 30 0RF aspirin 81 mg Tablet,Delayed Release (Dr/Ec) 81 mg PO BID Qty: 90 0RF docusate sodium 100 mg Capsule 100 mg PO BID PRN (Reason: constipation) Qty: 30 0RF ondansetron 4 mg Tablet,Disintegrating 4 mg PO Q8HR PRN (Reason: Nausea And Vomiting) Qty: 7 0RF Continued potassium chloride 10 mEq Tablet Extended Release 10 meq PO DAILY sertraline [Zoloft] 25 mg Tablet 25 mg PO DAILY cholecalciferol (vitamin D3) [Vitamin D3] 50 mcg (2,000 unit) Capsule 50 mcg PO DAILY acetaminophen [Tylenol Extra Strength] 500 mg Tablet 1,000 mg PO Q8H PRN (Reason: knee pain) losartan-hydrochlorothiazide 100-25 mg Tablet 1 tab PO QAM Follow up/Referrals: Mary Jane Mora MD [Physician] - 04/03/24 3:30 pm (Appt:04/03 @ 3:[address] Mora @ [facility] [place] [employer] please arrive 15 min prior to scheduled appointment time) Christina Bruno PA-C [Primary Care Provider] - Diet/Activity/Treatments Diet: Diet as Tolerated Activity: Weightbearing as tolerated. Walk frequently! Cold/Heat Therapy: Ice to knee as needed for pain. Skin/Wound/Dressing Care Report to your healthcare provider any signs of infection, such as:: chills, fever, night sweats, unusual drainage and unusual redness Dressing: May remove AMANDA wrap and shower on 03/22/2024. Leave dressing in place until follow up in office. No bathing or otherwise soaking incision. Call the office if the dressing becomes saturated inside. Visit Report/Discharge Packet Instructions: DI for Knee Replacement, How to Prevent Falls, DI for Prescription Opioid Use Stand Alone Forms: Patient Portal/API Discharge Data Primary Care Provider: Christina Bruno Attending Provider: Mary Jane Mora Quality VTE Deep Vein Thrombosis/Pulmonary Embolism Present on Admission: No
[2024-03-21 08:00] VITALS: BP 129/74; PULSE 73; RESP 18; TEMP 37.2; O2SAT 93
[2024-03-21] MEDS: DOCUSATE 100 MG CAPSULE PO (08:06)
[2024-03-21] MEDS: ASPIRIN EC 81 MG TABLET PO (08:07)
[2024-03-21 08:08] VITALS: BP 129/74; PULSE 73
[2024-03-21] MEDS: LOSARTAN 50 MG TABLET 100 MG PO (08:08)
[2024-03-21] MEDS: ACETAMINOPHEN 325 MG TABLET 650 MG PO (08:09)
[2024-03-21] MEDS: ONDANSETRON 4 MG ODT PO (08:09)
[2024-03-21] MEDS: hydroCHLOROthiazide 25 MG TABLET PO (08:09)
[2024-03-21] MEDS: CHOLECALCIFEROL (VITAMIN D3) 1,000 UNIT TABLET 2000 UNIT PO (08:10)
[2024-03-21] MEDS: SERTRALINE 50 MG TABLET 25 MG PO (08:10)
[2024-03-21] MEDS: POTASSIUM CHLORIDE 10 MEQ TAB PO (08:11)
[2024-03-21] MEDS: polyethylene glycoL 3350 17 GM POWD.PACK PO (08:11)
--- NOTE | 2024-03-21 09:44 | PT.IPTN ---
Current Diagnoses Unilateral primary osteoarthritis, left knee (03/19/24) Surgery Performed Operation Date: 03/19/24 10:45 Actual Procedures p Total Knee Arthroplasty - Robot(Left) - Mary Jane Mora MD Physical Therapy Treatment Note M2 PT-IP Current Condition Start: 03/20/24 11:56 Freq: NEEDED Status: Active Protocol: Document 03/21/24 08:52 SP (Rec: 03/21/24 10:09 SP [id number]) Physical Therapy Current Condition Current Condition Evaluation Date 03/20/24 Treatment Diagnosis s/p L TKA; difficulty in walking Onset Date 03/19/24 M3 PT-IP Subjective Start: 03/20/24 11:56 Freq: NEEDED Status: Active Protocol: Document 03/21/24 08:52 SP (Rec: 03/21/24 10:09 SP [id number]) Subjective Physical Therapy Visit Type Type Treatment Note Visit Start Time 08:52 Visit Stop Time 09:44 Notes Sister in room, completed CGT with pt including gait belt donning, support for mobility needed and cues guidance for mobility. Number of HVAC/R SERVICE TECHNICIAN Visits 1 Physical Therapy Visit Comments Patient Comments agreeable to do PT Therapy Pain Assessment Pain When Pain Assessed During Mobility Pain Present Pain Present Pain Reported Location left knee Intensity 9 Scale Used initially bed mob, lessened with gait. Pain Behaviors Facial Grimacing Pain Management Techniques Distraction,Re-positioning, Timing of Activity with Medications M4 PT-IP Mobility and Gait Start: 03/20/24 11:56 Freq: NEEDED Status: Active Protocol: Document 03/21/24 08:52 SP (Rec: 03/21/24 10:09 SP [id number]) PT-Bed Mobility Assessment Supine to Sit Supine to Sit Standby Assistance Scooting Scooting to Edge of Bed Standby Assistance PT-Transfer Assessment Sit to and From Stand Sit to and from Stand Contact Guard Assistance,1 Person Assistance,Use of Upper Extremities Equipment Transfer Assistive Device Gait Belt,Front Wheeled Walker Orthotic/Prosthetic Devices or Brace: No Transfers Transfer Destination Chair,Toilet,Wheelchair Transfer Technique pt ambulate with FWW Transfer Ability Level of Assist Contact Guard Assistance, Minimal Assistance,1 Person Assistance,Use of Upper Extremities Comments Mobility Comments pt elevated supine in bed when arrived. complete sup>sit and scoot to EOB with instructional support gait belt on L foot for self support to EOB and lowering to floor. Assist from sister for donning non skid socks and undergarment before standing. Pt able manage undergarment self instanding, cued 1 UE on FWW for safety balance, ed to sister stabilize FWW for safety. Gait to toilet to sink (wash hands use sink for stability support) then to w/c in hallway approx 10 ft, 15 ft x2 /c FWW, stand<>sit cues for UE positioning, CG-Min A from sister via gait belt. Wheeled pt to stairs. Completed 3 stairs step to patterning leading RLE ascend/ LLE descend CG-10%A while using forearm crutch in RUE and SPC in LUE due to no stairs at sister's home, stable TKE on LLE during RLE repositioning. Pt further gait approx 160 ft back to room chair , w/c follow not needed with 2 brief stand rests, cued encouragement L knee flexion heel toe gait phases /c FWW. Elevated pts BLEs inchair with call light in reach. Instructed post op extercises and provided gait belt looped on L foot for carryover heel slide support. Pt is ok to return to sister's home when medically cleared. Gait Assessment Gait Gait Assistance Required: Contact Guard Assist Distance (Feet) 160 Able to Maintain Weight Bearing Status Yes During Gait Assistive Devices Assistive Device Gait Belt,Front Wheeled Walker Orthotic/Prosthetic Devices or Brace: No Gait Deviations General Gait Pattern Antalgic,Decreased Stride Length,Decreased Feet Clearance,Step-to Gait Factors Limiting Gait Function Factors Limiting Gait Function Decreased Activity Tolerance, Decreased Strength,Limited Range of Motion,Pain,Poor Safety Awareness Comments Gait Comments see mobility comments Stair Climbing Assessment Evaluation Level of Assist On Stairs Contact Guard Assistance, Minimal Assistance,1 Person Assistance Devices Stair Climbing Assistive Devices Straight Cane,Forearm Crutches Technique/Endurance Stair Climbing Direction Ascend and Descend Stair Climbing Technique Step to Step Number of Steps Climbed 3 Stair Climbing Set # Repetitions (reps) 1 Comments Stair Climbing Comments see mobility comments PT-Balance Assessment Sitting Balance and Reactions Static Sitting Balance Ability Normal Dynamic Sitting Balance Ability Good Standing Balance and Reactions Static Standing Balance Ability Good Dynamic Standing Balance Ability Good Device Used FWW M5 PT-IP Objective Assessments Start: 03/20/24 11:56 Freq: NEEDED Status: Active Protocol: Document 03/20/24 10:15 AB (Rec: 03/20/24 12:14 AB [id number]) Orientation Orientation/Cognition Level of Alertness Alert Orientation Name,Place,Situation Language Function Ability Hard of Hearing Safety Awareness Decreased Safety Awareness Memory Description Short Term Impaired Gross Range of Motion Lower Extremity ROM Assessment Left Impaired Impairments L knee flexin: ~ 50 deg Strength Lower Extremity Strength Assessment Left Impaired Hip 3+/5 Knee 3+/5 Muscle Tone Muscle Tone WNL Yes M6 PT-IP Treatment Start: 03/20/24 11:56 Freq: NEEDED Status: Active Protocol: Document 03/21/24 08:52 SP (Rec: 03/21/24 10:09 SP [id number]) Physical Therapy Treatment Exercises Exercises Ankle Pumps,Quad Sets,Heel Slides,Short Arc Quads,Passive Knee Extension Hang Knee ROM Measurement approx 30 deg Education Education Provided Weight Bearing Status,Post-Op Packet,Safety Other Treatments Other Treatment Performed Encouraged HEP 3x/day, walking approx every hour if able for safety circulation, increase strength and mobility /c FWW. M7 PT-IP Assessment and Plan Start: 03/20/24 11:56 Freq: NEEDED Status: Active Protocol: Document 03/21/24 08:52 SP (Rec: 03/21/24 10:09 SP [id number]) PT Summary Assessment and Plan Potential Rehabilitation Potential Fair Status of Condition at Evaluation Evolving Summary Impairments Pain,ROM,Strength,Balance, Coordination,Sensation,Tone, Cognition,Bed Mobility, Transfers,Gait,Activity Tolerance Progress Towards Goals Progressing Toward Goals,Slow Progress due to Activity Tolerance Assessment Summary Pt improved mobility tolerance , SBA during bed mobility /c use belt on L foot self help needed. Transfers CGA-5%A /c FWW, gait /c FWW approx 200 ft total CGA, complete 3 stair mgt with forearm& SPC CG-10%A of sister's support. Recommending HHPT and assist 21/11 available which sister can provide when medically cleared. Goals Bed Mobility Goal Independent Transfer Goal Independent,Front Wheeled Walker Gait Goal Independent,Front Wheel Walker Gait Distance 100 Other Goals up/down 2 steps using forearm crutch/SUPERVISOR [employer]OUNDING [employer] FINISHING CGA Days to Meet Goals 10 Frequency of Treatment Frequency Of Treatment Twice a Day Treatment Plan Physical Therapy Treatment Plan Bed Mobility Training,Transfer Training,Gait Training, Therapeutic Exercise,Balance Retraining,Post Op Education, Discharge Planning,Hot or Cold Pack,Neuromuscular Re-ed, Coordination Retraining,Manual Therapy Other Recommendations and Next Treatment continue further gait /c FWW, Focus LE ex, STS. Weight Bearing Status Weight Bearing Status Weight Bear as Tolerated Allowed Weight Bearing Amount (enter % LLE WBAT or #) (%) Recommendations To Nursing Amount of Assist Needed 1 Person Assist Discharge Recommendations PT Discharge Recommendations Home with / Assist Available,Home Health Transportation Needs at Discharge Private Vehicle
--- NOTE | 2024-03-21 10:17 | PC.NURSE ---
Day shift: Discharge instructions gone over with patient and patient's sister (who is patient's POA). Patient and her sister stated understanding, all questions answered. PIV removed prior to discharge. All belongings with patient. BEA White escorted patient to exit via wheelchair.
== END 2024-03-21 10:25 | disposition home or self-care (01) ==
LOC: OR 08:49 → AC 08:54
PROVIDERS: PCP Physician Assistant Medical; Referring Provider Physician Assistant Medical; Visit Provider Orthopaedic Surgery
PROC: 0SRD0JZ Replacement of Left Knee Joint with Synthetic Substitute, Open Approach (ICD-10-PCS; CPT 27447; principal; 2024-03-19 10:45)
DX: G89.18 Other acute postprocedural pain (principal); M17.12 Unilateral primary osteoarthritis, left knee; M25.762 Osteophyte, left knee
CPT/HCPCS: 27447; 36415; 64450; 73560; 85014; 85018; 97116; 97162; 97165; 97530; 97535; C1776; C9290; J0171; J0690; J1100; J2405; J2704; J3010